=== PATIENT | female | born 1950 | race Caucasian/White ===

== ENCOUNTER 2016-10-13 15:04 | Emergency (ER) | payer MEDICARE, OTHER ==
[~2016-10-13] VITALS: Ht 157.5 cm; Wt 73.6 kg
[2016-10-13] MEDS ORDERED: PANT40TA25 PO (15:33)
[2016-10-13] MEDS ORDERED: ATOR40TA28 PO (15:33)
[2016-10-13] MEDS ORDERED: CARB200T6 PO (15:33)
[2016-10-13] MEDS ORDERED: RIVA15T PO (15:33)
[2016-10-13] MEDS ORDERED: METO25 PO (15:33)
[2016-10-13] MEDS ORDERED: TOPI100 PO (15:33)
[2016-10-13] MEDS ORDERED: AMLO-512 PO (15:33)
[2016-10-13] MEDS ORDERED: SOLI5 PO (15:33)
[2016-10-13] MEDS ORDERED: ASPI81 PO (15:33)
[2016-10-13] MEDS ORDERED: PERTUSS(ACELL),DIPH,TET VAC/PF 0.5 ML VIAL IM ONE (17:30)
[2016-10-13] MEDS ORDERED: AMOX TR/POT CLAV 875 MG/125 MG TABLET PO ONE (17:30)
[2016-10-13] MEDS ORDERED: BACITRACIN 0.9 GM PACKET OINTMENT TP ONE (17:30)
[2016-10-13] MEDS ORDERED: ACETAMINOPHEN/CODEINE 300-30 MG TABLET PO ONE (17:45)
[2016-10-13 18:36] VITALS: BP 125/89
== END 2016-10-13 18:38 | disposition home or self-care (01) ==
LOC: EMS 15:05
DX: S41.152A Open bite of left upper arm, initial encounter (principal); I10 Essential (primary) hypertension; Z79.4 Long term (current) use of insulin; Z79.82 Long term (current) use of aspirin; Z79.01 Long term (current) use of anticoagulants; Z95.5 Presence of coronary angioplasty implant and graft; W54.0XXA Bitten by dog, initial encounter; Y93.89 Activity, other specified; Y92.9 Unspecified place or not applicable; Y99.9 Unspecified external cause status
CPT/HCPCS: 90471; 90715; 99284

== ENCOUNTER → 2017-06-09 | Outpatient (CLI) | payer MEDICARE, OTHER ==
[~2017-06-09] VITALS: Ht 157.5 cm; Wt 72.0 kg
[~2017-06-09] MED LIST: AMLO-512 PO; ASPI81 PO; ATOR40TA28 PO; CARB200T6 PO; METO25 PO; PANT40TA25 PO; RIVA15T PO; SOLI5 PO; TOPI100T37 PO
[2017-06-09 10:32] VITALS: BP 134/76
== END | disposition home or self-care (01) ==
LOC: SRCNTR 10:21
PROVIDERS: ATTEND Internal Medicine Clinical Cardiac Electrophysiology
DX: Z45.018 Encounter for adjustment and management of other part of cardiac pacemaker (principal)
CPT/HCPCS: 93288; G0463

== ENCOUNTER → 2017-06-30 | Outpatient (CLI) | payer MEDICARE, OTHER ==
[~2017-06-30] VITALS: Ht 157.5 cm; Wt 72.0 kg
[2017-06-30 11:02] VITALS: BP 113/67
== END | disposition home or self-care (01) ==
LOC: SRCNTR 10:41
PROVIDERS: ATTEND Internal Medicine Clinical Cardiac Electrophysiology
DX: Z45.018 Encounter for adjustment and management of other part of cardiac pacemaker (principal)
CPT/HCPCS: 93288; G0463

== ENCOUNTER → 2017-09-01 | Outpatient (CLI) | payer MEDICARE, OTHER ==
[~2017-09-01] VITALS: Ht 157.5 cm; Wt 71.5 kg
[2017-09-01 10:16] VITALS: BP 119/72
== END | disposition home or self-care (01) ==
LOC: SRCNTR 10:11
PROVIDERS: ATTEND Internal Medicine Clinical Cardiac Electrophysiology
DX: Z45.018 Encounter for adjustment and management of other part of cardiac pacemaker (principal); I10 Essential (primary) hypertension; Z79.82 Long term (current) use of aspirin
CPT/HCPCS: 93288; G0463

== ENCOUNTER 2021-07-18 15:45 | Emergency (ER) | payer OTHER ==
[~2021-07-18] VITALS: Ht 157.5 cm; Wt 63.6 kg
[~2021-07-18 15:45] MED LIST changes: +ACET-2247 PO; +ACID1TAB8 PO; -AMLO-512 PO; +ASPI-1450 PO; -ASPI81 PO; +CIPR250T6 PO; -METO25 PO; +METR500 PO; +PANT-31 PO; -PANT40TA25 PO; -RIVA15T PO; +RIVA15TA PO
[2021-07-18 16:33] LABS: BASOPHILS % (AUTO) 0.4 % (0.0-2.0); EOSINOPHILS % (AUTO) 0.4 % (1.0-6.0); HEMATOCRIT 35.7 % (36-46); HEMOGLOBIN 11.9 g/dL (12.0-16.0); LYMPHOCYTES # (AUTO) 1.1 K/uL (1.0-4.8); LYMPHOCYTES % (AUTO) 18.6 % (22.0-44.0); MEAN CORPUSCULAR HGB CONC 33.5 G/dL (31.0-37.0); MEAN CORPUSCULAR VOLUME 90 fL (80-100); MONOCYTES # (AUTO) 0.4 K/uL (0.1-1.0); MONOCYTES % (AUTO) 6.6 % (2.0-9.0); NEUTROPHILS # (AUTO) 4.5 K/uL (1.8-7.7); PLATELET COUNT (AUTO) 319 K/uL (150-450); RED BLOOD CELL COUNT(AUTO) 3.97 MIL/uL (4.00-5.20); RED CELL DISTRIBUTION WIDTH 13.7 % (11.5-14.5)
[2021-07-18 16:45] LABS: INR 1.1 (0.9-1.1); PROTHROMBIN TIME 11.4 SEC (9.4-11.6)
[2021-07-18 16:49] LABS: ALANINE AMINOTRANSFERASE 14 U/L (12-78); ALKALINE PHOSPHATASE 120 U/L (46-116); ANION GAP 10 mmol/L (8-16); ASPARTATE AMINOTRANSFERASE 22 U/L (15-37); BILIRUBIN,TOTAL 0.2 mg/dL (0.1-1.0); CALCIUM, TOTAL 8.5 mg/dL (8.8-10.5); CARBON DIOXIDE 27 mmol/L (22-29); CHLORIDE 106 mmol/L (98-107); CREATININE 0.79 mg/dL (0.60-1.30); GLUCOSE,RANDOM 120 mg/dL (70-110); SODIUM SERUM 143 mmol/L (136-145); TOTAL PROTEIN, SERUM 7.8 g/dL (6.4-8.2); UREA NITROGEN, BLOOD 9 mg/dL (7-18)
[2021-07-18 16:56] LABS: GLOMERULAR FILTR. RATE CALC > 60 mL/min (>60); POTASSIUM 2.8 mmol/L (3.5-5.1)
[2021-07-18] MEDS ORDERED: POTASSIUM CHLORIDE 20 MEQ ER TABLET PO ONE (18:15)
[2021-07-18 19:06] LABS: APPEARANCE,URINE TURBID (CLEAR); BILIRUBIN,URINE NEGATIVE (NEGATIVE); GLUCOSE, URINE (UA) NEGATIVE (NEGATIVE); KETONES,URINE 15 mg/dL (NEGATIVE); LEUKOCYTE ESTERASE ,URINE LARGE (NEGATIVE); NITRATE,URINE POSITIVE (NEGATIVE); OCCULT BLOOD,URINE LARGE (NEGATIVE); PH,URINE 6.5 (5.0-8.0); PROTEIN,URINE SEE CONFIRM (NEGATIVE)
[2021-07-18 19:21] LABS: SULFOSALICYLIC ACID,URINE 4+ (Negative)
[2021-07-18 19:44] LABS: RBC,URINE Full Field /HPF (0-2); WBC,URINE Full Field /HPF (0-5)
[2021-07-18 19:46] LABS: BACTERIA,URINE Few /HPF (None Seen); SQUAMOUS EPITHELIAL CELL,UR Rare /LPF (None Seen)
[2021-07-18] MEDS ORDERED: CEPHALEXIN MONOHYDRATE 500 MG CAPSULE PO ONE (21:45)
[2021-07-18] MEDS ORDERED: CEPH500C3 PO (21:53)
[2021-07-18 22:29] VITALS: BP 123/71
== END 2021-07-18 22:33 | disposition home or self-care (01) ==
LOC: EMS 15:46
DX: N39.0 Urinary tract infection, site not specified (principal); I10 Essential (primary) hypertension; Z79.899 Other long term (current) drug therapy
CPT/HCPCS: 76817; 80053; 81001; 81002; 85025; 85610; 85730; 87086; 99285

== ENCOUNTER 2021-08-17 15:07 | Inpatient (IN) | payer OTHER ==
[~2021-08-17] VITALS: Ht 157.5 cm; Wt 53.0 kg
[~2021-08-17 15:07] MED LIST changes: +CEPH500C3 PO
[2021-08-17] MEDS ORDERED: LORazepam 2 MG/ML VIAL IVP ONE (16:00)
[2021-08-17] MEDS ORDERED: SODIUM CHLORIDE 0.9% 1,000 ML IV ONE (16:00)
[2021-08-17] MEDS ORDERED: LOPERAMIDE HCL 2 MG CAPSULE PO ONE (16:00)
[2021-08-17 16:48] LABS: BASOPHILS % (AUTO) 0.5 % (0.0-2.0); EOSINOPHILS % (AUTO) 0.2 % (1.0-6.0); LYMPHOCYTES # (AUTO) 1.4 K/uL (1.0-4.8); LYMPHOCYTES % (AUTO) 27.5 % (22.0-44.0); MEAN CORPUSCULAR HEMOGLOBIN 29.4 pg (26.0-34.0); MEAN CORPUSCULAR HGB CONC 33.3 G/dL (31.0-37.0); MEAN CORPUSCULAR VOLUME 88 fL (80-100); MONOCYTES # (AUTO) 0.4 K/uL (0.1-1.0); NEUTROPHILS # (AUTO) 3.3 K/uL (1.8-7.7); NEUTROPHILS % (AUTO) 64.8 % (40.0-70.0); PLATELET COUNT (AUTO) 291 K/uL (150-450); RED BLOOD CELL COUNT(AUTO) 4.08 MIL/uL (4.00-5.20); RED CELL DISTRIBUTION WIDTH 14.6 % (11.5-14.5)
[2021-08-17 18:09] LABS: ALANINE AMINOTRANSFERASE 18 U/L (12-78); ALBUMIN 1.9 g/dL (3.4-5.0); ALKALINE PHOSPHATASE 156 U/L (46-116); ANION GAP 11 mmol/L (8-16); ASPARTATE AMINOTRANSFERASE 31 U/L (15-37); BILIRUBIN,TOTAL 0.5 mg/dL (0.1-1.0); CALCIUM, TOTAL 6.5 mg/dL (8.8-10.5); CARBON DIOXIDE 29 mmol/L (22-29); CHLORIDE 105 mmol/L (98-107); CREATININE 0.78 mg/dL (0.60-1.30); GLOMERULAR FILTR. RATE CALC > 60 mL/min (>60); GLUCOSE,RANDOM 95 mg/dL (70-110); POTASSIUM 2.3 mmol/L (3.5-5.1); SODIUM SERUM 145 mmol/L (136-145); TOTAL PROTEIN, SERUM 6.2 g/dL (6.4-8.2); UREA NITROGEN, BLOOD 10 mg/dL (7-18)
[2021-08-17] MEDS ORDERED: ACETAMINOPHEN 325 MG TABLET PO PRN ×3 (18:30→22:00)
[2021-08-17] MEDS ORDERED: ONDANSETRON HCL 4 MG/2 ML VIAL IVP PRN ×2 (18:30→22:00)
[2021-08-17] MEDS ORDERED: POTASSIUM CHL 10 MEQ/WATER 50 ML IV PRN (18:30)
[2021-08-17] MEDS ORDERED: POTASSIUM CHLORIDE 20 MEQ ER TABLET PO PRN ×2 (18:30)
[2021-08-17] MEDS ORDERED: BISACODYL 10 MG RECTAL RECTAL SUPPOSITORY PR PRN (22:00)
[2021-08-17] MEDS ORDERED: ALBUTEROL SULFATE 2.5 MG/0.5 ML NEB SOLUTION NEB PRN (22:00)
[2021-08-17] MEDS ORDERED: IPRATROPIUM BROMIDE 0.5 MG/2.5 ML NEB SOLUTION NEB PRN (22:00)
[2021-08-17] MEDS ORDERED: MAGNESIUM HYDROXIDE SUSPENSION 30 ML UDCUP PO PRN (22:00)
[2021-08-17] MEDS ORDERED: MORPHINE SULFATE 2 MG/ML SYRINGE IVP PRN (22:00)
[2021-08-17 22:10] VITALS: BP 123/67
[2021-08-17] MEDS ORDERED: MAGNESIUM SULFATE 4 GM/WATER 100 ML IV PRN (22:15)
[2021-08-17] MEDS ORDERED: MAGNESIUM OXIDE 400 MG TABLET PO PRN (22:15)
[2021-08-17] MEDS ORDERED: MAGNESIUM SULFATE 2 GM/WATER 50 ML IV PRN (22:15)
[2021-08-17 22:44] LABS: BASOPHILS % (AUTO) 0.4 % (0.0-2.0); EOSINOPHILS % (AUTO) 0.2 % (1.0-6.0); HEMATOCRIT 34.1 % (36-46); HEMOGLOBIN 11.6 g/dL (12.0-16.0); LYMPHOCYTES # (AUTO) 1.4 K/uL (1.0-4.8); LYMPHOCYTES % (AUTO) 26.4 % (22.0-44.0); MEAN CORPUSCULAR HEMOGLOBIN 29.7 pg (26.0-34.0); MEAN CORPUSCULAR HGB CONC 33.9 G/dL (31.0-37.0); MEAN CORPUSCULAR VOLUME 88 fL (80-100); MONOCYTES # (AUTO) 0.4 K/uL (0.1-1.0); MONOCYTES % (AUTO) 7.5 % (2.0-9.0); NEUTROPHILS # (AUTO) 3.4 K/uL (1.8-7.7); NEUTROPHILS % (AUTO) 65.5 % (40.0-70.0); PLATELET COUNT (AUTO) 293 K/uL (150-450); RED BLOOD CELL COUNT(AUTO) 3.89 MIL/uL (4.00-5.20); RED CELL DISTRIBUTION WIDTH 14.5 % (11.5-14.5)
[2021-08-17 22:59] LABS: ALANINE AMINOTRANSFERASE 17 U/L (12-78); ALBUMIN 1.9 g/dL (3.4-5.0); ALKALINE PHOSPHATASE 155 U/L (46-116); ANION GAP 9 mmol/L (8-16); ASPARTATE AMINOTRANSFERASE 29 U/L (15-37); BILIRUBIN,TOTAL 0.5 mg/dL (0.1-1.0); CALCIUM, TOTAL 6.5 mg/dL (8.8-10.5); CARBON DIOXIDE 28 mmol/L (22-29); CHLORIDE 105 mmol/L (98-107); CREATININE 0.77 mg/dL (0.60-1.30); GLOMERULAR FILTR. RATE CALC > 60 mL/min (>60); GLUCOSE,RANDOM 97 mg/dL (70-110); SODIUM SERUM 142 mmol/L (136-145); TOTAL PROTEIN, SERUM 6.5 g/dL (6.4-8.2); UREA NITROGEN, BLOOD 8 mg/dL (7-18)
[2021-08-17 23:01] LABS: POTASSIUM 2.1 mmol/L (3.5-5.1)
[2021-08-17] MEDS: HEPARIN SODIUM,PORCINE 5,000 UNITS/ML VIAL SQ SCH (23:21)
[2021-08-17] MEDS: POTASSIUM CHL 10 MEQ/WATER 50 ML IV PRN (23:23)
[2021-08-18] MEDS: POTASSIUM CHL 10 MEQ/WATER 50 ML IV PRN ×8 (00:32→15:59)
[2021-08-18] MEDS: ZOLPIDEM TARTRATE 5 MG TABLET PO PRN ×2 (01:28→23:11)
[2021-08-18 07:40] VITALS: BP 103/59
[2021-08-18] MEDS: HEPARIN SODIUM,PORCINE 5,000 UNITS/ML VIAL SQ SCH ×3 (08:22→22:26)
[2021-08-18] MEDS: ASPIRIN 81 MG CHEWABLE TABLET PO SCH (08:23)
[2021-08-18] MEDS: LACTOBACILLUS ACIDOPHILUS/BULGARICUS TABLET PO SCH ×2 (08:23→22:26)
[2021-08-18] MEDS: MetroNIDAZOLE 500 MG TABLET PO SCH ×3 (08:23→22:26)
[2021-08-18] MEDS: PANTOPRAZOLE SODIUM 40 MG DR TABLET PO SCH ×2 (08:24→22:25)
[2021-08-18] MEDS: ATORVASTATIN CALCIUM 40 MG TABLET PO SCH (08:24)
[2021-08-18] MEDS: TOPIRAMATE 100 MG TABLET PO SCH ×2 (08:24→22:26)
[2021-08-18] MEDS: SOLIFENACIN SUCCINATE 5 MG TABLET PO SCH (08:25)
[2021-08-18] MEDS: CarBAMazepine 200 MG TABLET PO SCH (08:26)
[2021-08-18] MEDS ORDERED: PANTOPRAZOLE SODIUM 40 MG/VIAL IVP SCH (09:00)
[2021-08-18 10:50] VITALS: BP 109/67
[2021-08-18] MEDS ORDERED: SODIUM CHLORIDE 0.9% 500 ML IV ONE ×2 (11:11→15:53)
[2021-08-18] MEDS ORDERED: SODIUM CHLORIDE 0.9% 250 ML IV ONE (11:48)
[2021-08-18] MEDS: POTASSIUM CHLORIDE 20 MEQ ER TABLET PO PRN ×2 (13:47→23:10)
[2021-08-18] MEDS: HYDROCODONE/ACETAMINOPHEN 5-325 MG TABLET PO PRN (15:40)
[2021-08-18] MEDS: RIVAROXABAN 15 MG TABLET PO SCH (18:03)
[2021-08-18 20:44] VITALS: BP 99/58
[2021-08-18 22:46] VITALS: BP 103/58
[2021-08-19 01:17] VITALS: BP 109/71
[2021-08-19 05:11] VITALS: BP 116/55
[2021-08-19 08:13] VITALS: BP 117/74
[2021-08-19] MEDS: LACTOBACILLUS ACIDOPHILUS/BULGARICUS TABLET PO SCH ×2 (08:27→20:54)
[2021-08-19] MEDS: MetroNIDAZOLE 500 MG TABLET PO SCH ×3 (08:27→20:55)
[2021-08-19] MEDS: TOPIRAMATE 100 MG TABLET PO SCH ×2 (08:27→20:55)
[2021-08-19] MEDS: HYDROCODONE/ACETAMINOPHEN 5-325 MG TABLET PO PRN (08:27)
[2021-08-19] MEDS: SOLIFENACIN SUCCINATE 5 MG TABLET PO SCH (08:27)
[2021-08-19] MEDS: ASPIRIN 81 MG CHEWABLE TABLET PO SCH (08:28)
[2021-08-19] MEDS: CarBAMazepine 200 MG TABLET PO SCH (08:28)
[2021-08-19] MEDS: PANTOPRAZOLE SODIUM 40 MG DR TABLET PO SCH ×2 (08:28→20:54)
[2021-08-19] MEDS: ATORVASTATIN CALCIUM 40 MG TABLET PO SCH (08:28)
[2021-08-19] MEDS: HEPARIN SODIUM,PORCINE 5,000 UNITS/ML VIAL SQ SCH ×3 (08:28→20:55)
[2021-08-19 11:14] LABS: ANION GAP 6 mmol/L (8-16); CALCIUM, TOTAL 6.7 mg/dL (8.8-10.5); CARBON DIOXIDE 24 mmol/L (22-29); CHLORIDE 109 mmol/L (98-107); CREATININE 0.73 mg/dL (0.60-1.30); GLUCOSE,RANDOM 124 mg/dL (70-110); POTASSIUM 3.3 mmol/L (3.5-5.1); SODIUM SERUM 139 mmol/L (136-145); UREA NITROGEN, BLOOD 7 mg/dL (7-18)
[2021-08-19 11:15] LABS: GLOMERULAR FILTR. RATE CALC > 60 mL/min (>60)
[2021-08-19] MEDS: POTASSIUM CHLORIDE 20 MEQ ER TABLET PO PRN (11:34)
[2021-08-19 14:02] LABS: APPEARANCE,URINE CLOUDY (CLEAR); BILIRUBIN,URINE NEGATIVE (NEGATIVE); GLUCOSE, URINE (UA) NEGATIVE (NEGATIVE); KETONES,URINE NEGATIVE (NEGATIVE); LEUKOCYTE ESTERASE ,URINE LARGE (NEGATIVE); NITRATE,URINE NEGATIVE (NEGATIVE); OCCULT BLOOD,URINE MODERATE (NEGATIVE); PROTEIN,URINE NEGATIVE (NEGATIVE)
[2021-08-19 14:24] LABS: BACTERIA,URINE Many /HPF (None Seen); RBC,URINE 0-2 /HPF (0-2); SQUAMOUS EPITHELIAL CELL,UR Few /LPF (None Seen); WBC,URINE 26-50 /HPF (0-5)
[2021-08-19 16:00] VITALS: BP 111/71
[2021-08-19] MEDS: CefTRIAXone SODIUM 250 MG in DEXTROSE 5%-WATER 50 ML IV SCH (16:32)
[2021-08-19] MEDS: CEPHALEXIN MONOHYDRATE 500 MG CAPSULE PO SCH ×2 (16:32→20:55)
[2021-08-19] MEDS: RIVAROXABAN 15 MG TABLET PO SCH (18:19)
[2021-08-19 19:29] VITALS: BP 107/63
[2021-08-19] MEDS: ZOLPIDEM TARTRATE 5 MG TABLET PO PRN (20:55)
[2021-08-20 04:15] VITALS: BP 105/68
[2021-08-20 08:41] VITALS: BP 119/76
[2021-08-20] MEDS: CEPHALEXIN MONOHYDRATE 500 MG CAPSULE PO SCH (10:06)
[2021-08-20] MEDS: TOPIRAMATE 100 MG TABLET PO SCH (10:07)
[2021-08-20] MEDS: LACTOBACILLUS ACIDOPHILUS/BULGARICUS TABLET PO SCH (10:07)
[2021-08-20] MEDS: ATORVASTATIN CALCIUM 40 MG TABLET PO SCH (10:07)
[2021-08-20] MEDS: PANTOPRAZOLE SODIUM 40 MG DR TABLET PO SCH (10:07)
[2021-08-20] MEDS: ASPIRIN 81 MG CHEWABLE TABLET PO SCH (10:07)
[2021-08-20] MEDS: SOLIFENACIN SUCCINATE 5 MG TABLET PO SCH (10:07)
[2021-08-20] MEDS: CarBAMazepine 200 MG TABLET PO SCH (10:08)
[2021-08-20] MEDS: MetroNIDAZOLE 500 MG TABLET PO SCH (10:08)
[2021-08-20] MEDS: HEPARIN SODIUM,PORCINE 5,000 UNITS/ML VIAL SQ SCH (10:08)
[2021-08-20 10:32] LABS: BASOPHILS % (AUTO) 0.3 % (0.0-2.0); EOSINOPHILS % (AUTO) 0.2 % (1.0-6.0); HEMATOCRIT 36.6 % (36-46); HEMOGLOBIN 11.9 g/dL (12.0-16.0); LYMPHOCYTES # (AUTO) 1.5 K/uL (1.0-4.8); LYMPHOCYTES % (AUTO) 30.2 % (22.0-44.0); MEAN CORPUSCULAR HEMOGLOBIN 29.2 pg (26.0-34.0); MEAN CORPUSCULAR HGB CONC 32.6 G/dL (31.0-37.0); MEAN CORPUSCULAR VOLUME 90 fL (80-100); MONOCYTES # (AUTO) 0.4 K/uL (0.1-1.0); MONOCYTES % (AUTO) 7.3 % (2.0-9.0); PLATELET COUNT (AUTO) 367 K/uL (150-450); RED BLOOD CELL COUNT(AUTO) 4.08 MIL/uL (4.00-5.20); RED CELL DISTRIBUTION WIDTH 15.6 % (11.5-14.5)
[2021-08-20 10:59] LABS: ANION GAP 13 mmol/L (8-16); CARBON DIOXIDE 23 mmol/L (22-29); CHLORIDE 108 mmol/L (98-107); CREATININE 0.82 mg/dL (0.60-1.30); POTASSIUM 3.9 mmol/L (3.5-5.1); SODIUM SERUM 144 mmol/L (136-145); UREA NITROGEN, BLOOD 9 mg/dL (7-18)
[2021-08-20 11:00] LABS: ALANINE AMINOTRANSFERASE 17 U/L (12-78); ALBUMIN 1.8 g/dL (3.4-5.0); ALKALINE PHOSPHATASE 163 U/L (46-116); ASPARTATE AMINOTRANSFERASE 27 U/L (15-37); BILIRUBIN,TOTAL 0.3 mg/dL (0.1-1.0); CALCIUM, TOTAL 7.4 mg/dL (8.8-10.5); THYROID STIMULATING HORMONE 1.09 uIU/mL (0.36-3.74); TOTAL PROTEIN, SERUM 6.6 g/dL (6.4-8.2)
[2021-08-20 11:01] LABS: GLOMERULAR FILTR. RATE CALC > 60 mL/min (>60)
[2021-08-20 11:05] LABS: GLUCOSE,RANDOM 129 mg/dL (70-110)
[2021-08-20 12:51] VITALS: BP 106/73
[2021-08-20] MEDS: CefTRIAXone SODIUM 250 MG in DEXTROSE 5%-WATER 50 ML IV SCH (14:58)
[2021-08-20] MEDS ORDERED: METR500 PO (16:39)
[2021-08-20] MEDS ORDERED: CEPH500C3 PO (16:39)
== END 2021-08-20 17:01 | disposition home or self-care (01) | DRG 391 ==
LOC: EMS 15:12 → 5S 20:36 → 6N 08-18 10:20
PROVIDERS: ADMIT Hospitalist; ATTEND Hospitalist
DX: R19.7 Diarrhea, unspecified (principal); E43 Unspecified severe protein-calorie malnutrition; E87.6 Hypokalemia; G40.909 Epilepsy, unspecified, not intractable, without status epilepticus; I10 Essential (primary) hypertension; E78.5 Hyperlipidemia, unspecified; E88.09 Other disorders of plasma-protein metabolism, not elsewhere classified; Z79.899 Other long term (current) drug therapy; T36.95XA Adverse effect of unspecified systemic antibiotic, initial encounter; Y92.89 Other specified places as the place of occurrence of the external cause
CPT/HCPCS: 80048; 80053; 81001; 83735; 84132; 84443; 85025; 87086; 93005; 99285; J0696; J1644; J2060; J3475; J3480; J7030; J7040; J7050; J7060

== ENCOUNTER 2021-08-30 13:06 | Inpatient (IN) | payer OTHER ==
[~2021-08-30] VITALS: Ht 160 cm; Wt 56.1 kg
[~2021-08-30 13:06] MED LIST changes: -ACID1TAB8 PO; -CIPR250T6 PO
[2021-08-30 14:02] LABS: BASOPHILS % (AUTO) 0.2 % (0.0-2.0); EOSINOPHILS % (AUTO) 0.1 % (1.0-6.0); HEMATOCRIT 31.1 % (36-46); HEMOGLOBIN 10.7 g/dL (12.0-16.0); LYMPHOCYTES # (AUTO) 1.5 K/uL (1.0-4.8); LYMPHOCYTES % (AUTO) 26.2 % (22.0-44.0); MEAN CORPUSCULAR HEMOGLOBIN 30.1 pg (26.0-34.0); MEAN CORPUSCULAR HGB CONC 34.3 G/dL (31.0-37.0); MEAN CORPUSCULAR VOLUME 88 fL (80-100); MONOCYTES # (AUTO) 0.4 K/uL (0.1-1.0); MONOCYTES % (AUTO) 6.6 % (2.0-9.0); NEUTROPHILS # (AUTO) 3.9 K/uL (1.8-7.7); NEUTROPHILS % (AUTO) 66.9 % (40.0-70.0); PLATELET COUNT (AUTO) 271 K/uL (150-450); RED BLOOD CELL COUNT(AUTO) 3.55 MIL/uL (4.00-5.20); RED CELL DISTRIBUTION WIDTH 17.4 % (11.5-14.5)
[2021-08-30 14:18] LABS: LACTIC ACID 1.6 mmol/L (0.4-2.0)
[2021-08-30] MEDS ORDERED: ACETAMINOPHEN 325 MG TABLET PO ONE (14:30)
[2021-08-30] MEDS ORDERED: SODIUM CHLORIDE 0.9% 1,000 ML IV ONE (14:30)
[2021-08-30 14:31] LABS: ALANINE AMINOTRANSFERASE 14 U/L (12-78); ALBUMIN 1.5 g/dL (3.4-5.0); ALKALINE PHOSPHATASE 171 U/L (46-116); ANION GAP 12 mmol/L (8-16); ASPARTATE AMINOTRANSFERASE 28 U/L (15-37); BILIRUBIN,TOTAL 0.8 mg/dL (0.1-1.0); CALCIUM, TOTAL 7.1 mg/dL (8.8-10.5); CARBON DIOXIDE 24 mmol/L (22-29); CHLORIDE 101 mmol/L (98-107); CREATININE 0.58 mg/dL (0.60-1.30); GLUCOSE,RANDOM 93 mg/dL (70-110); LIPASE 46 U/L (73-393); SODIUM SERUM 137 mmol/L (136-145); TOTAL PROTEIN, SERUM 5.9 g/dL (6.4-8.2); UREA NITROGEN, BLOOD 15 mg/dL (7-18)
[2021-08-30 14:36] LABS: GLOMERULAR FILTR. RATE CALC > 60 mL/min (>60); POTASSIUM 2.8 mmol/L (3.5-5.1)
[2021-08-30] MEDS ORDERED: POTASSIUM CHLORIDE 20 MEQ ER TABLET PO ONE (14:45)
[2021-08-30] MEDS ORDERED: POTASSIUM CHL 20 MEQ/0.9% NS 1,000 ML IV ONE (15:45)
[2021-08-30] MEDS ORDERED: CefTRIAXone 1 GM/DEXTROSE 50 ML IV ONE (17:15)
[2021-08-30 17:34] LABS: COVID AG,FIA SOURCE NASOPHARYNGEAL
[2021-08-30] MEDS ORDERED: ONDANSETRON HCL 4 MG/2 ML VIAL IVP PRN ×2 (17:45→20:30)
[2021-08-30] MEDS ORDERED: ACETAMINOPHEN 325 MG TABLET PO PRN ×2 (17:45→20:30)
[2021-08-30] MEDS ORDERED: MORPHINE SULFATE 2 MG/ML SYRINGE IVP PRN (20:30)
[2021-08-30] MEDS ORDERED: ZOLPIDEM TARTRATE 5 MG TABLET PO PRN (20:30)
[2021-08-30] MEDS ORDERED: HYDROCODONE/ACETAMINOPHEN 5-325 MG TABLET PO PRN (20:30)
[2021-08-30] MEDS ORDERED: MAGNESIUM HYDROXIDE SUSPENSION 30 ML UDCUP PO PRN (20:30)
[2021-08-30] MEDS ORDERED: BISACODYL 10 MG RECTAL RECTAL SUPPOSITORY PR PRN (20:30)
[2021-08-30] MEDS ORDERED: ALBUTEROL SULFATE 2.5 MG/0.5 ML NEB SOLUTION NEB PRN (20:30)
[2021-08-30] MEDS ORDERED: IPRATROPIUM BROMIDE 0.5 MG/2.5 ML NEB SOLUTION NEB PRN (20:30)
[2021-08-30 20:58] VITALS: BP 97/72
[2021-08-30] MEDS: DOCUSATE SODIUM 100 MG CAPSULE PO SCH (21:00)
[2021-08-30] MEDS: POTASSIUM CHL 40 MEQ/D5-0.45NS 1,000 ML IV SCH (23:19)
[2021-08-30] MEDS: HEPARIN SODIUM,PORCINE 5,000 UNITS/ML VIAL SQ SCH (23:28)
[2021-08-31] VITALS (7 sets, daily range): BP systolic 89–109; BP diastolic 59–87
[2021-08-31 08:44] LABS: BASOPHILS % (AUTO) 0.1 % (0.0-2.0); EOSINOPHILS % (AUTO) 0.3 % (1.0-6.0); HEMATOCRIT 29.2 % (36-46); HEMOGLOBIN 9.9 g/dL (12.0-16.0); LYMPHOCYTES # (AUTO) 1.4 K/uL (1.0-4.8); LYMPHOCYTES % (AUTO) 30.3 % (22.0-44.0); MEAN CORPUSCULAR HEMOGLOBIN 30.1 pg (26.0-34.0); MEAN CORPUSCULAR VOLUME 89 fL (80-100); MONOCYTES # (AUTO) 0.3 K/uL (0.1-1.0); MONOCYTES % (AUTO) 6.6 % (2.0-9.0); NEUTROPHILS # (AUTO) 2.9 K/uL (1.8-7.7); NEUTROPHILS % (AUTO) 62.7 % (40.0-70.0); PLATELET COUNT (AUTO) 255 K/uL (150-450); RED BLOOD CELL COUNT(AUTO) 3.29 MIL/uL (4.00-5.20); RED CELL DISTRIBUTION WIDTH 17.6 % (11.5-14.5)
[2021-08-31 08:57] LABS: ALANINE AMINOTRANSFERASE 16 U/L (12-78); ALBUMIN 1.3 g/dL (3.4-5.0); ALKALINE PHOSPHATASE 176 U/L (46-116); ANION GAP 8 mmol/L (8-16); ASPARTATE AMINOTRANSFERASE 31 U/L (15-37); BILIRUBIN,TOTAL 0.5 mg/dL (0.1-1.0); CALCIUM, TOTAL 6.8 mg/dL (8.8-10.5); CARBON DIOXIDE 21 mmol/L (22-29); CHLORIDE 108 mmol/L (98-107); CREATININE 0.47 mg/dL (0.60-1.30); GLOMERULAR FILTR. RATE CALC > 60 mL/min (>60); GLUCOSE,RANDOM 76 mg/dL (70-110); POTASSIUM 3.3 mmol/L (3.5-5.1); SODIUM SERUM 137 mmol/L (136-145); TOTAL PROTEIN, SERUM 5.5 g/dL (6.4-8.2); UREA NITROGEN, BLOOD 13 mg/dL (7-18)
[2021-08-31] MEDS: DOCUSATE SODIUM 100 MG CAPSULE PO SCH ×2 (09:00→20:16)
[2021-08-31] MEDS: PANTOPRAZOLE SODIUM 40 MG/VIAL IVP SCH (09:01)
[2021-08-31] MEDS: HEPARIN SODIUM,PORCINE 5,000 UNITS/ML VIAL SQ SCH (09:01)
[2021-08-31] MEDS ORDERED: PEG 3350/NA SULF,BICARB,CL/KCL 4000 ML SOLUTION PO ONE (12:00)
[2021-08-31] MEDS: POTASSIUM CHL 40 MEQ/D5-0.45NS 1,000 ML IV SCH (13:38)
[2021-08-31] MEDS: CarBAMazepine 200 MG TABLET PO SCH (15:30)
[2021-09-01] MEDS: POTASSIUM CHL 40 MEQ/D5-0.45NS 1,000 ML IV SCH ×2 (03:27→16:26)
[2021-09-01 03:35] VITALS: BP 113/55
[2021-09-01] MEDS: CarBAMazepine 200 MG TABLET PO SCH (08:54)
[2021-09-01] MEDS: PANTOPRAZOLE SODIUM 40 MG/VIAL IVP SCH (08:54)
[2021-09-01] MEDS: DOCUSATE SODIUM 100 MG CAPSULE PO SCH ×2 (08:58→21:00)
[2021-09-01 09:39] VITALS: BP 98/63
[2021-09-01] MEDS ORDERED: SODIUM CHLORIDE 0.9% 1,000 ML ONE (12:33)
[2021-09-01 18:46] VITALS: BP 100/54
[2021-09-01 21:39] VITALS: BP 101/69
[2021-09-02] MEDS: POTASSIUM CHL 40 MEQ/D5-0.45NS 1,000 ML IV SCH (00:47)
[2021-09-02 05:04] VITALS: BP 95/65
[2021-09-02] MEDS ORDERED: 0.9% SODIUM CHLORIDE 10 ML VIAL IVP ONE (06:21)
[2021-09-02] MEDS ORDERED: PROPOFOL 1% 20 ML VIAL IVP ONE (06:21)
[2021-09-02] MEDS ORDERED: LIDOCAINE/PF 2% 5 ML VIAL IM ONE (06:21)
[2021-09-02] MEDS ORDERED: PHENYLEPHRINE HCL 10 MG/ML VIAL IVP ONE (06:21)
[2021-09-02] MEDS ORDERED: SODIUM CHLORIDE 0.9% 1,000 ML IV ONE (06:45)
[2021-09-02] MEDS ORDERED: SODIUM CHLORIDE 0.9% 1,000 ML ONE (06:49)
[2021-09-02 07:02] LABS: BASOPHILS % (AUTO) 0.3 % (0.0-2.0); EOSINOPHILS % (AUTO) 0.3 % (1.0-6.0); HEMATOCRIT 28.4 % (36-46); HEMOGLOBIN 9.6 g/dL (12.0-16.0); LYMPHOCYTES # (AUTO) 2.2 K/uL (1.0-4.8); LYMPHOCYTES % (AUTO) 51.9 % (22.0-44.0); MEAN CORPUSCULAR HEMOGLOBIN 29.9 pg (26.0-34.0); MEAN CORPUSCULAR HGB CONC 33.7 G/dL (31.0-37.0); MEAN CORPUSCULAR VOLUME 89 fL (80-100); MONOCYTES # (AUTO) 0.2 K/uL (0.1-1.0); MONOCYTES % (AUTO) 4.7 % (2.0-9.0); NEUTROPHILS # (AUTO) 1.8 K/uL (1.8-7.7); NEUTROPHILS % (AUTO) 42.8 % (40.0-70.0); PLATELET COUNT (AUTO) 186 K/uL (150-450); RED BLOOD CELL COUNT(AUTO) 3.21 MIL/uL (4.00-5.20); RED CELL DISTRIBUTION WIDTH 18.5 % (11.5-14.5)
[2021-09-02] MEDS ORDERED: SODIUM CL IRRIG SOLN BAG 6,000 ML IRRIG ONE (07:10)
[2021-09-02 07:15] LABS: ANION GAP 11 mmol/L (8-16); CARBON DIOXIDE 24 mmol/L (22-29); CHLORIDE 109 mmol/L (98-107); CREATININE 0.57 mg/dL (0.60-1.30); GLUCOSE,RANDOM 85 mg/dL (70-110); INR 1.2 (0.9-1.1); POTASSIUM 4.3 mmol/L (3.5-5.1); PROTHROMBIN TIME 12.9 SEC (9.4-11.6); SODIUM SERUM 144 mmol/L (136-145); UREA NITROGEN, BLOOD 6 mg/dL (7-18)
[2021-09-02] MEDS ORDERED: FentaNYL CITRATE PF 100 MCG/2 ML VIAL IVP PRN (07:15)
[2021-09-02] MEDS ORDERED: MEPERIDINE-PF 25 MG/ML VIAL IVP PRN (07:15)
[2021-09-02] MEDS ORDERED: HYDROmorphone 2 MG/ML VIAL IVP PRN (07:15)
[2021-09-02 07:17] LABS: GLOMERULAR FILTR. RATE CALC > 60 mL/min (>60)
[2021-09-02 07:21] LABS: ALANINE AMINOTRANSFERASE 25 U/L (12-78); ALBUMIN 1.2 g/dL (3.4-5.0); ALKALINE PHOSPHATASE 181 U/L (46-116); ASPARTATE AMINOTRANSFERASE 63 U/L (15-37); BILIRUBIN,TOTAL 0.5 mg/dL (0.1-1.0); TOTAL PROTEIN, SERUM 5.3 g/dL (6.4-8.2)
[2021-09-02] MEDS ORDERED: OXYGEN THERAPY IH SCH (08:00)
[2021-09-02] MEDS ORDERED: ACETAMINOPHEN 325 MG TABLET PO PRN (08:15)
[2021-09-02] MEDS ORDERED: METOPROLOL TARTRATE 5 MG/5 ML VIAL ONE (08:17)
[2021-09-02] MEDS ORDERED: PANTOPRAZOLE SODIUM 40 MG DR TABLET PO SCH (09:00)
[2021-09-02] MEDS ORDERED: ASPIRIN 81 MG CHEWABLE TABLET PO SCH (09:00)
[2021-09-02] MEDS ORDERED: MetroNIDAZOLE 500 MG TABLET PO SCH (09:00)
[2021-09-02] MEDS: DOCUSATE SODIUM 100 MG CAPSULE PO SCH (09:00)
[2021-09-02] MEDS ORDERED: ATORVASTATIN CALCIUM 40 MG TABLET PO SCH (09:00)
[2021-09-02] MEDS: CarBAMazepine 200 MG TABLET PO SCH (09:25)
[2021-09-02] MEDS: CEPHALEXIN MONOHYDRATE 500 MG CAPSULE PO SCH ×3 (09:25→16:05)
[2021-09-02 10:27] VITALS: BP 116/63
[2021-09-02 14:03] VITALS: BP 112/70
[2021-09-02] MEDS ORDERED: CEPH500C2 PO (18:00)
[2021-09-02] MEDS ORDERED: METR500 PO (18:00)
[2021-09-02] MEDS ORDERED: DEXAMETHASONE SOD PHOS 4 MG/ML VIAL IVP ONE (18:59)
[2021-09-02] MEDS ORDERED: MIDAZOLAM HCL 2 MG/2 ML VIAL IVP ONE (18:59)
[2021-09-02] MEDS ORDERED: EPHEDrine SULFATE 50 MG/ML VIAL IM ONE (18:59)
[2021-09-02] MEDS ORDERED: SUCCINYLCHOLINE CHLORIDE 20 MG/ML 10 ML VIAL IVP ONE (18:59)
[2021-09-02] MEDS ORDERED: FentaNYL CITRATE PF 100 MCG/2 ML VIAL IVP ONE (18:59)
[2021-09-02] MEDS ORDERED: ONDANSETRON HCL 4 MG/2 ML VIAL IVP ONE (18:59)
[2021-09-02] MEDS ORDERED: LACTULOSE 20 GM/30 ML SOLUTION UDCUP PO SCH (21:00)
== END 2021-09-02 19:00 | disposition home or self-care (01) | DRG 698 ==
LOC: EMS 13:06 → 5N 19:53 → 6S 09-01 18:25
PROVIDERS: ADMIT Hospitalist; ATTEND Hospitalist
PROC: 0DBN8ZX Excision of Sigmoid Colon, Via Natural or Artificial Opening Endoscopic, Diagnostic (ICD-10-PCS; 2021-09-01)
PROC: 0TJB8ZZ Inspection of Bladder, Via Natural or Artificial Opening Endoscopic (ICD-10-PCS; principal; 2021-09-02 07:57)
DX: N32.1 Vesicointestinal fistula (principal); E43 Unspecified severe protein-calorie malnutrition; K57.32 Diverticulitis of large intestine without perforation or abscess without bleeding; I10 Essential (primary) hypertension; E87.6 Hypokalemia; D64.9 Anemia, unspecified; N30.80 Other cystitis without hematuria; K52.9 Noninfective gastroenteritis and colitis, unspecified; I25.10 Atherosclerotic heart disease of native coronary artery without angina pectoris; Z20.822 Contact with and (suspected) exposure to COVID-19; E86.0 Dehydration; I95.9 Hypotension, unspecified; E78.5 Hyperlipidemia, unspecified; E88.09 Other disorders of plasma-protein metabolism, not elsewhere classified; E78.00 Pure hypercholesterolemia, unspecified; G40.909 Epilepsy, unspecified, not intractable, without status epilepticus; Z79.899 Other long term (current) drug therapy; Z90.49 Acquired absence of other specified parts of digestive tract; Z95.0 Presence of cardiac pacemaker; Z68.21 Body mass index [BMI] 21.0-21.9, adult
CPT/HCPCS: 51702; 71045; 74176; 80053; 83605; 83690; 84484; 85025; 85610; 85730; 87081; 88305; 93005; 99291; C9113; J0330; J0690; J0696; J1100; J1644; J2250; J2270; J2370; J2405; J2704; J3010; J3480; J3490; J7030; 36415-L1; 36415-TC; Z7610

== ENCOUNTER 2021-09-06 19:09 | Inpatient (IN) | payer OTHER ==
[~2021-09-06] VITALS: Ht 157.5 cm; Wt 51.5 kg
[~2021-09-06 19:09] MED LIST changes: +CEPH500C2 PO; -CEPH500C3 PO
[2021-09-06 20:19] LABS: BASOPHILS % (AUTO) 1.3 % (0.0-2.0); EOSINOPHILS % (AUTO) 0.2 % (1.0-6.0); HEMATOCRIT 27.7 % (36-46); HEMOGLOBIN 9.3 g/dL (12.0-16.0); LYMPHOCYTES # (AUTO) 2.1 K/uL (1.0-4.8); LYMPHOCYTES % (AUTO) 48.2 % (22.0-44.0); MEAN CORPUSCULAR HEMOGLOBIN 29.8 pg (26.0-34.0); MEAN CORPUSCULAR HGB CONC 33.6 G/dL (31.0-37.0); MEAN CORPUSCULAR VOLUME 89 fL (80-100); MONOCYTES # (AUTO) 0.2 K/uL (0.1-1.0); MONOCYTES % (AUTO) 5.4 % (2.0-9.0); NEUTROPHILS # (AUTO) 1.9 K/uL (1.8-7.7); NEUTROPHILS % (AUTO) 44.9 % (40.0-70.0); PLATELET COUNT (AUTO) 114 K/uL (150-450); RED BLOOD CELL COUNT(AUTO) 3.12 MIL/uL (4.00-5.20); RED CELL DISTRIBUTION WIDTH 18.2 % (11.5-14.5)
[2021-09-06 20:26] LABS: ANION GAP 10 mmol/L (8-16); CALCIUM, TOTAL 7.5 mg/dL (8.8-10.5); CARBON DIOXIDE 23 mmol/L (22-29); CHLORIDE 107 mmol/L (98-107); CREATININE 0.54 mg/dL (0.60-1.30); GLUCOSE,RANDOM 99 mg/dL (70-110); POTASSIUM 4.4 mmol/L (3.5-5.1); SODIUM SERUM 140 mmol/L (136-145); UREA NITROGEN, BLOOD 7 mg/dL (7-18)
[2021-09-06 20:29] LABS: INR 1.2 (0.9-1.1); PROTHROMBIN TIME 12.4 SEC (9.4-11.6)
[2021-09-06 20:33] LABS: APPEARANCE,URINE TURBID (CLEAR); BILIRUBIN,URINE NEGATIVE (NEGATIVE); GLUCOSE, URINE (UA) NEGATIVE (NEGATIVE); KETONES,URINE TRACE mg/dL (NEGATIVE); LEUKOCYTE ESTERASE ,URINE LARGE (NEGATIVE); NITRATE,URINE NEGATIVE (NEGATIVE); OCCULT BLOOD,URINE LARGE (NEGATIVE); PROTEIN,URINE SEE CONFIRM (NEGATIVE)
[2021-09-06 20:33] LABS: ALANINE AMINOTRANSFERASE 41 U/L (12-78); ALBUMIN 1.5 g/dL (3.4-5.0); ALKALINE PHOSPHATASE 393 U/L (46-116); ASPARTATE AMINOTRANSFERASE 63 U/L (15-37); BILIRUBIN,TOTAL 0.6 mg/dL (0.1-1.0); TOTAL PROTEIN, SERUM 6.1 g/dL (6.4-8.2)
[2021-09-06 20:35] LABS: B-TYPE NATRIURETIC PEPTIDE 39 pg/mL (0-100)
[2021-09-06 20:36] LABS: GLOMERULAR FILTR. RATE CALC > 60 mL/min (>60)
[2021-09-06 20:52] LABS: BACTERIA,URINE Few /HPF (None Seen); WBC,URINE >100 /HPF (0-5)
[2021-09-06 20:53] LABS: SULFOSALICYLIC ACID,URINE 1+ (Negative)
[2021-09-06 22:49] LABS: D-DIMER 1.06 mg/L FEU (0.00-0.50)
[2021-09-06] MEDS ORDERED: IOHEXOL 350 MG/ML 100 ML VIAL ONE (23:16)
[2021-09-07] MEDS ORDERED: FUROSEMIDE 40 MG/4 ML VIAL IVP ONE (04:45)
[2021-09-07] MEDS ORDERED: ONDANSETRON HCL 4 MG/2 ML VIAL IVP PRN (05:15)
[2021-09-07 05:28] LABS: COVID AG,FIA SOURCE NASAL SWAB
[2021-09-07 06:28] VITALS: BP 118/67
[2021-09-07] MEDS ORDERED: HEPARIN SODIUM,PORCINE 5,000 UNITS/ML VIAL SQ SCH ×2 (08:00→16:00)
[2021-09-07 08:24] VITALS: BP 104/67
[2021-09-07] MEDS: MetroNIDAZOLE 500 MG TABLET PO SCH ×3 (08:27→20:40)
[2021-09-07] MEDS: ASPIRIN 81 MG CHEWABLE TABLET PO SCH (08:27)
[2021-09-07] MEDS: ATORVASTATIN CALCIUM 40 MG TABLET PO SCH (08:27)
[2021-09-07] MEDS: PANTOPRAZOLE SODIUM 40 MG DR TABLET PO SCH ×2 (08:28→20:40)
[2021-09-07] MEDS: CarBAMazepine 200 MG TABLET PO SCH (08:37)
[2021-09-07] MEDS: TOPIRAMATE 100 MG TABLET PO SCH ×2 (08:37→20:40)
[2021-09-07] MEDS ORDERED: CEPHALEXIN MONOHYDRATE 500 MG CAPSULE PO SCH (09:00)
[2021-09-07 09:55] LABS: BILIRUBIN,URINE NEGATIVE (NEGATIVE); GLUCOSE, URINE (UA) NEGATIVE (NEGATIVE); KETONES,URINE NEGATIVE (NEGATIVE); LEUKOCYTE ESTERASE ,URINE MODERATE (NEGATIVE); NITRATE,URINE NEGATIVE (NEGATIVE); OCCULT BLOOD,URINE SMALL (NEGATIVE); PROTEIN,URINE NEGATIVE (NEGATIVE); UROBILINOGEN,URINE 0.2 mg/dL (<=1.0)
[2021-09-07 10:16] LABS: APPEARANCE,URINE HAZY (CLEAR)
[2021-09-07 10:23] LABS: BACTERIA,URINE Few /HPF (None Seen)
[2021-09-07] MEDS: CefTRIAXone 1 GM/DEXTROSE 50 ML IV SCH (13:07)
[2021-09-07 13:13] VITALS: BP 100/58
[2021-09-07] MEDS ORDERED: RIVAROXABAN 15 MG TABLET PO SCH (17:30)
[2021-09-07 18:32] VITALS: BP 103/51
[2021-09-07 20:32] VITALS: BP 109/59
[2021-09-08 00:17] VITALS: BP 119/68
[2021-09-08 04:22] VITALS: BP 112/67
[2021-09-08 07:40] LABS: ANION GAP 3 mmol/L (8-16); CARBON DIOXIDE 25 mmol/L (22-29); CHLORIDE 108 mmol/L (98-107); CREATININE 0.59 mg/dL (0.60-1.30); GLOMERULAR FILTR. RATE CALC > 60 mL/min (>60); GLUCOSE,RANDOM 86 mg/dL (70-110); SODIUM SERUM 136 mmol/L (136-145); UREA NITROGEN, BLOOD 3 mg/dL (7-18)
[2021-09-08 07:57] LABS: BASOPHILS % (AUTO) 0.8 % (0.0-2.0); EOSINOPHILS % (AUTO) 0.3 % (1.0-6.0); HEMATOCRIT 24.6 % (36-46); HEMOGLOBIN 8.4 g/dL (12.0-16.0); LYMPHOCYTES # (AUTO) 2.4 K/uL (1.0-4.8); LYMPHOCYTES % (AUTO) 55.6 % (22.0-44.0); MEAN CORPUSCULAR HEMOGLOBIN 30.1 pg (26.0-34.0); MEAN CORPUSCULAR HGB CONC 34.3 G/dL (31.0-37.0); MEAN CORPUSCULAR VOLUME 88 fL (80-100); MONOCYTES # (AUTO) 0.3 K/uL (0.1-1.0); MONOCYTES % (AUTO) 5.9 % (2.0-9.0); NEUTROPHILS # (AUTO) 1.6 K/uL (1.8-7.7); NEUTROPHILS % (AUTO) 37.4 % (40.0-70.0); PLATELET COUNT (AUTO) 94 K/uL (150-450); RED CELL DISTRIBUTION WIDTH 17.8 % (11.5-14.5)
[2021-09-08] MEDS: MetroNIDAZOLE 500 MG TABLET PO SCH ×3 (08:20→20:07)
[2021-09-08] MEDS: ASPIRIN 81 MG CHEWABLE TABLET PO SCH (08:20)
[2021-09-08] MEDS: CarBAMazepine 200 MG TABLET PO SCH (08:20)
[2021-09-08] MEDS: TOPIRAMATE 100 MG TABLET PO SCH ×2 (08:21→20:07)
[2021-09-08] MEDS: ATORVASTATIN CALCIUM 40 MG TABLET PO SCH (08:21)
[2021-09-08] MEDS: PANTOPRAZOLE SODIUM 40 MG DR TABLET PO SCH ×2 (08:21→20:07)
[2021-09-08 08:35] VITALS: BP 106/74
[2021-09-08 12:00] VITALS: BP 107/68
[2021-09-08] MEDS: CefTRIAXone 1 GM/DEXTROSE 50 ML IV SCH (12:01)
[2021-09-08] MEDS ORDERED: MAGNESIUM SULFATE 4 GM/WATER 100 ML IV PRN (15:30)
[2021-09-08] MEDS ORDERED: MAGNESIUM SULFATE 2 GM/WATER 50 ML IV PRN (15:30)
[2021-09-08] MEDS ORDERED: MAGNESIUM OXIDE 400 MG TABLET PO PRN (15:30)
[2021-09-08 15:50] LABS: ALBUMIN 1.4 g/dL (3.4-5.0)
[2021-09-08] MEDS ORDERED: LEVALBUTEROL HCL 1.25 MG/0.5 ML NEB SOLUTION NEB PRN (16:30)
[2021-09-08] MEDS: ENOXAPARIN SODIUM 60 MG/0.6 ML PF SYRINGE SQ SCH (18:16)
[2021-09-08 21:47] VITALS: BP 100/56
[2021-09-09 01:16] VITALS: BP 93/53
[2021-09-09 04:35] VITALS: BP 98/50
[2021-09-09 08:00] VITALS: BP 109/69
[2021-09-09] MEDS: ATORVASTATIN CALCIUM 40 MG TABLET PO SCH (09:37)
[2021-09-09] MEDS: ASPIRIN 81 MG CHEWABLE TABLET PO SCH (09:37)
[2021-09-09] MEDS: ENOXAPARIN SODIUM 60 MG/0.6 ML PF SYRINGE SQ SCH ×2 (09:38→20:34)
[2021-09-09] MEDS: CarBAMazepine 200 MG TABLET PO SCH (09:38)
[2021-09-09] MEDS: MetroNIDAZOLE 500 MG TABLET PO SCH ×3 (09:38→20:35)
[2021-09-09] MEDS: PANTOPRAZOLE SODIUM 40 MG DR TABLET PO SCH ×2 (09:38→20:39)
[2021-09-09] MEDS: TOPIRAMATE 100 MG TABLET PO SCH ×2 (09:38→20:35)
[2021-09-09 12:00] VITALS: BP 108/63
[2021-09-09] MEDS: CefTRIAXone 1 GM/DEXTROSE 50 ML IV SCH (12:50)
[2021-09-09 14:42] LABS: BASOPHILS % (AUTO) 0.4 % (0.0-2.0); EOSINOPHILS % (AUTO) 0.4 % (1.0-6.0); HEMATOCRIT 24.1 % (36-46); LYMPHOCYTES # (AUTO) 2.7 K/uL (1.0-4.8); LYMPHOCYTES % (AUTO) 55.3 % (22.0-44.0); MEAN CORPUSCULAR HEMOGLOBIN 29.3 pg (26.0-34.0); MEAN CORPUSCULAR HGB CONC 33.2 G/dL (31.0-37.0); MEAN CORPUSCULAR VOLUME 88 fL (80-100); MONOCYTES # (AUTO) 0.3 K/uL (0.1-1.0); MONOCYTES % (AUTO) 6.6 % (2.0-9.0); NEUTROPHILS # (AUTO) 1.8 K/uL (1.8-7.7); NEUTROPHILS % (AUTO) 37.3 % (40.0-70.0); PLATELET COUNT (AUTO) 118 K/uL (150-450); RED BLOOD CELL COUNT(AUTO) 2.73 MIL/uL (4.00-5.20); RED CELL DISTRIBUTION WIDTH 17.8 % (11.5-14.5)
[2021-09-09 16:00] VITALS: BP 117/62
[2021-09-09 16:13] LABS: ALANINE AMINOTRANSFERASE 24 U/L (12-78); ALBUMIN 1.2 g/dL (3.4-5.0); ALKALINE PHOSPHATASE 306 U/L (46-116); ANION GAP 11 mmol/L (8-16); ASPARTATE AMINOTRANSFERASE 29 U/L (15-37); BILIRUBIN,TOTAL 0.2 mg/dL (0.1-1.0); CALCIUM, TOTAL 6.9 mg/dL (8.8-10.5); CARBON DIOXIDE 23 mmol/L (22-29); CHLORIDE 107 mmol/L (98-107); CREATININE 0.58 mg/dL (0.60-1.30); GLOMERULAR FILTR. RATE CALC > 60 mL/min (>60); GLUCOSE,RANDOM 145 mg/dL (70-110); SODIUM SERUM 141 mmol/L (136-145); TOTAL PROTEIN, SERUM 5.5 g/dL (6.4-8.2); UREA NITROGEN, BLOOD 2 mg/dL (7-18)
[2021-09-09 16:15] LABS: POTASSIUM 2.5 mmol/L (3.5-5.1)
[2021-09-09] MEDS ORDERED: POTASSIUM CHLORIDE 20 MEQ ER TABLET PO PRN (17:00)
[2021-09-09] MEDS ORDERED: POTASSIUM CHLORIDE 10% 40 MEQ/30 ML LIQUID UDCUP PO PRN ×2 (17:00)
[2021-09-09] MEDS ORDERED: POTASSIUM CHL 10 MEQ/WATER 50 ML IV PRN ×3 (17:00)
[2021-09-09] MEDS: POTASSIUM CHLORIDE 20 MEQ ER TABLET PO PRN (17:03)
[2021-09-09] MEDS: POTASSIUM CHL 10 MEQ/WATER 50 ML IV PRN ×4 (17:04→23:42)
[2021-09-09 20:00] VITALS: BP 115/78
[2021-09-10] VITALS: BP 113/67
[2021-09-10 04:00] VITALS: BP 120/69
[2021-09-10 07:12] LABS: BASOPHILS % (AUTO) 0.4 % (0.0-2.0); EOSINOPHILS % (AUTO) 0.2 % (1.0-6.0); HEMATOCRIT 24.2 % (36-46); HEMOGLOBIN 8.3 g/dL (12.0-16.0); LYMPHOCYTES # (AUTO) 2.9 K/uL (1.0-4.8); LYMPHOCYTES % (AUTO) 50.3 % (22.0-44.0); MEAN CORPUSCULAR HEMOGLOBIN 30.1 pg (26.0-34.0); MEAN CORPUSCULAR HGB CONC 34.2 G/dL (31.0-37.0); MEAN CORPUSCULAR VOLUME 88 fL (80-100); MONOCYTES # (AUTO) 0.4 K/uL (0.1-1.0); MONOCYTES % (AUTO) 6.8 % (2.0-9.0); NEUTROPHILS # (AUTO) 2.4 K/uL (1.8-7.7); NEUTROPHILS % (AUTO) 42.3 % (40.0-70.0); PLATELET COUNT (AUTO) 152 K/uL (150-450); RED BLOOD CELL COUNT(AUTO) 2.75 MIL/uL (4.00-5.20); RED CELL DISTRIBUTION WIDTH 17.7 % (11.5-14.5)
[2021-09-10 07:31] LABS: ALANINE AMINOTRANSFERASE 22 U/L (12-78); ALBUMIN 1.3 g/dL (3.4-5.0); ALKALINE PHOSPHATASE 282 U/L (46-116); ANION GAP 9 mmol/L (8-16); ASPARTATE AMINOTRANSFERASE 28 U/L (15-37); BILIRUBIN,TOTAL 0.4 mg/dL (0.1-1.0); CALCIUM, TOTAL 6.9 mg/dL (8.8-10.5); CARBON DIOXIDE 24 mmol/L (22-29); CHLORIDE 108 mmol/L (98-107); CREATININE 0.48 mg/dL (0.60-1.30); GLUCOSE,RANDOM 88 mg/dL (70-110); POTASSIUM 3.4 mmol/L (3.5-5.1); SODIUM SERUM 141 mmol/L (136-145); TOTAL PROTEIN, SERUM 5.7 g/dL (6.4-8.2); UREA NITROGEN, BLOOD 2 mg/dL (7-18)
[2021-09-10 07:37] LABS: GLOMERULAR FILTR. RATE CALC > 60 mL/min (>60)
[2021-09-10] MEDS: ENOXAPARIN SODIUM 60 MG/0.6 ML PF SYRINGE SQ SCH ×2 (09:17→21:18)
[2021-09-10] MEDS: ASPIRIN 81 MG CHEWABLE TABLET PO SCH (09:18)
[2021-09-10] MEDS: CarBAMazepine 200 MG TABLET PO SCH (09:18)
[2021-09-10] MEDS: MetroNIDAZOLE 500 MG TABLET PO SCH ×3 (09:18→21:19)
[2021-09-10] MEDS: PANTOPRAZOLE SODIUM 40 MG DR TABLET PO SCH ×2 (09:18→21:19)
[2021-09-10] MEDS: ATORVASTATIN CALCIUM 40 MG TABLET PO SCH (09:19)
[2021-09-10] MEDS: TOPIRAMATE 100 MG TABLET PO SCH ×2 (09:19→21:19)
[2021-09-10] MEDS: ACETAMINOPHEN 325 MG TABLET PO PRN ×2 (12:24→21:18)
[2021-09-10] MEDS: CefTRIAXone 1 GM/DEXTROSE 50 ML IV SCH (12:24)
[2021-09-10 14:03] VITALS: BP 98/58
[2021-09-10 20:56] VITALS: BP 100/67
[2021-09-11 00:20] VITALS: BP 98/55
[2021-09-11 04:22] VITALS: BP 117/69
[2021-09-11 07:07] LABS: BASOPHILS % (AUTO) 0.7 % (0.0-2.0); EOSINOPHILS % (AUTO) 0.4 % (1.0-6.0); HEMATOCRIT 24.1 % (36-46); HEMOGLOBIN 8.1 g/dL (12.0-16.0); LYMPHOCYTES # (AUTO) 2.6 K/uL (1.0-4.8); MEAN CORPUSCULAR HEMOGLOBIN 30.1 pg (26.0-34.0); MEAN CORPUSCULAR HGB CONC 33.5 G/dL (31.0-37.0); MEAN CORPUSCULAR VOLUME 90 fL (80-100); MONOCYTES # (AUTO) 0.3 K/uL (0.1-1.0); MONOCYTES % (AUTO) 7.3 % (2.0-9.0); NEUTROPHILS # (AUTO) 1.5 K/uL (1.8-7.7); NEUTROPHILS % (AUTO) 32.6 % (40.0-70.0); PLATELET COUNT (AUTO) 180 K/uL (150-450); RED BLOOD CELL COUNT(AUTO) 2.69 MIL/uL (4.00-5.20); RED CELL DISTRIBUTION WIDTH 18.5 % (11.5-14.5)
[2021-09-11 07:19] VITALS: BP 109/65
[2021-09-11 07:28] LABS: ALANINE AMINOTRANSFERASE 19 U/L (12-78); ALBUMIN 1.2 g/dL (3.4-5.0); ALKALINE PHOSPHATASE 234 U/L (46-116); ANION GAP 8 mmol/L (8-16); ASPARTATE AMINOTRANSFERASE 20 U/L (15-37); BILIRUBIN,TOTAL 0.3 mg/dL (0.1-1.0); CALCIUM, TOTAL 7.2 mg/dL (8.8-10.5); CARBON DIOXIDE 24 mmol/L (22-29); CHLORIDE 111 mmol/L (98-107); CREATININE 0.53 mg/dL (0.60-1.30); GLUCOSE,RANDOM 90 mg/dL (70-110); SODIUM SERUM 143 mmol/L (136-145); TOTAL PROTEIN, SERUM 5.4 g/dL (6.4-8.2); UREA NITROGEN, BLOOD 3 mg/dL (7-18)
[2021-09-11 07:37] LABS: GLOMERULAR FILTR. RATE CALC > 60 mL/min (>60)
[2021-09-11] MEDS: TOPIRAMATE 100 MG TABLET PO SCH ×2 (08:33→20:47)
[2021-09-11] MEDS: ATORVASTATIN CALCIUM 40 MG TABLET PO SCH (08:34)
[2021-09-11] MEDS: CarBAMazepine 200 MG TABLET PO SCH (08:34)
[2021-09-11] MEDS: PANTOPRAZOLE SODIUM 40 MG DR TABLET PO SCH ×2 (08:34→20:48)
[2021-09-11] MEDS: ENOXAPARIN SODIUM 60 MG/0.6 ML PF SYRINGE SQ SCH ×2 (08:34→20:48)
[2021-09-11] MEDS: ASPIRIN 81 MG CHEWABLE TABLET PO SCH (08:35)
[2021-09-11] MEDS: MetroNIDAZOLE 500 MG TABLET PO SCH ×3 (08:35→20:47)
[2021-09-11] MEDS: POTASSIUM CHL 10 MEQ/WATER 50 ML IV PRN ×4 (08:36→16:21)
[2021-09-11] MEDS: ACETAMINOPHEN 325 MG TABLET PO PRN ×3 (08:50→20:56)
[2021-09-11 11:11] VITALS: BP 98/53
[2021-09-11] MEDS: CefTRIAXone 1 GM/DEXTROSE 50 ML IV SCH (12:05)
[2021-09-11] MEDS ORDERED: MAGNESIUM HYDROXIDE SUSPENSION 30 ML UDCUP PO ONE (14:15)
[2021-09-11 15:02] VITALS: BP 115/66
[2021-09-11] MEDS: POTASSIUM CHLORIDE 20 MEQ ER TABLET PO PRN (16:40)
[2021-09-11 21:50] VITALS: BP 122/69
[2021-09-12 06:04] LABS: BASOPHILS % (AUTO) 0.3 % (0.0-2.0); EOSINOPHILS % (AUTO) 0.3 % (1.0-6.0); HEMATOCRIT 26.9 % (36-46); HEMOGLOBIN 8.9 g/dL (12.0-16.0); LYMPHOCYTES # (AUTO) 2.8 K/uL (1.0-4.8); LYMPHOCYTES % (AUTO) 51.6 % (22.0-44.0); MEAN CORPUSCULAR HEMOGLOBIN 29.9 pg (26.0-34.0); MEAN CORPUSCULAR HGB CONC 33.1 G/dL (31.0-37.0); MEAN CORPUSCULAR VOLUME 90 fL (80-100); MONOCYTES # (AUTO) 0.3 K/uL (0.1-1.0); MONOCYTES % (AUTO) 6.3 % (2.0-9.0); NEUTROPHILS # (AUTO) 2.2 K/uL (1.8-7.7); NEUTROPHILS % (AUTO) 41.5 % (40.0-70.0); PLATELET COUNT (AUTO) 309 K/uL (150-450); RED BLOOD CELL COUNT(AUTO) 2.97 MIL/uL (4.00-5.20); RED CELL DISTRIBUTION WIDTH 18.6 % (11.5-14.5)
[2021-09-12 06:21] LABS: ALANINE AMINOTRANSFERASE 16 U/L (12-78); ALBUMIN 1.3 g/dL (3.4-5.0); ALKALINE PHOSPHATASE 247 U/L (46-116); ANION GAP 8 mmol/L (8-16); ASPARTATE AMINOTRANSFERASE 19 U/L (15-37); BILIRUBIN,TOTAL 0.3 mg/dL (0.1-1.0); CALCIUM, TOTAL 7.2 mg/dL (8.8-10.5); CARBON DIOXIDE 21 mmol/L (22-29); CHLORIDE 105 mmol/L (98-107); CREATININE 0.44 mg/dL (0.60-1.30); GLUCOSE,RANDOM 90 mg/dL (70-110); SODIUM SERUM 134 mmol/L (136-145); TOTAL PROTEIN, SERUM 5.9 g/dL (6.4-8.2); UREA NITROGEN, BLOOD 2 mg/dL (7-18)
[2021-09-12 06:24] LABS: GLOMERULAR FILTR. RATE CALC > 60 mL/min (>60)
[2021-09-12 08:22] VITALS: BP 111/69
[2021-09-12] MEDS: MetroNIDAZOLE 500 MG TABLET PO SCH ×3 (09:00→20:46)
[2021-09-12] MEDS: PANTOPRAZOLE SODIUM 40 MG DR TABLET PO SCH ×2 (09:00→20:46)
[2021-09-12] MEDS: ASPIRIN 81 MG CHEWABLE TABLET PO SCH (09:00)
[2021-09-12] MEDS: ATORVASTATIN CALCIUM 40 MG TABLET PO SCH (09:00)
[2021-09-12] MEDS: MULTIVITAMINS WITH MINERALS, THERAPEUTIC TABLET PO SCH (09:00)
[2021-09-12] MEDS: ENOXAPARIN SODIUM 60 MG/0.6 ML PF SYRINGE SQ SCH ×2 (09:00→20:46)
[2021-09-12] MEDS: CarBAMazepine 200 MG TABLET PO SCH (09:00)
[2021-09-12] MEDS: TOPIRAMATE 100 MG TABLET PO SCH ×2 (09:01→20:46)
[2021-09-12 11:48] VITALS: BP 106/64
[2021-09-12] MEDS: CefTRIAXone 1 GM/DEXTROSE 50 ML IV SCH (12:17)
[2021-09-12 16:26] VITALS: BP 98/64
[2021-09-12 20:36] VITALS: BP 150/83
[2021-09-12] MEDS: ACETAMINOPHEN 325 MG TABLET PO PRN (21:04)
[2021-09-12 23:50] VITALS: BP 108/69
[2021-09-13] MEDS ORDERED: HYDROCODONE/ACETAMINOPHEN 5-325 MG TABLET PO PRN ×2 (00:30)
[2021-09-13 04:11] VITALS: BP 112/76
[2021-09-13] MEDS: ACETAMINOPHEN 325 MG TABLET PO PRN ×3 (04:45→20:06)
[2021-09-13 05:37] LABS: BASOPHILS % (AUTO) 0.8 % (0.0-2.0); EOSINOPHILS % (AUTO) 0.2 % (1.0-6.0); HEMATOCRIT 25.9 % (36-46); HEMOGLOBIN 8.6 g/dL (12.0-16.0); LYMPHOCYTES # (AUTO) 3.3 K/uL (1.0-4.8); LYMPHOCYTES % (AUTO) 68.3 % (22.0-44.0); MEAN CORPUSCULAR HEMOGLOBIN 30.2 pg (26.0-34.0); MEAN CORPUSCULAR HGB CONC 33.1 G/dL (31.0-37.0); MEAN CORPUSCULAR VOLUME 91 fL (80-100); MONOCYTES # (AUTO) 0.4 K/uL (0.1-1.0); MONOCYTES % (AUTO) 8.7 % (2.0-9.0); NEUTROPHILS # (AUTO) 1.1 K/uL (1.8-7.7); PLATELET COUNT (AUTO) 359 K/uL (150-450); RED BLOOD CELL COUNT(AUTO) 2.83 MIL/uL (4.00-5.20)
[2021-09-13 05:58] LABS: ALANINE AMINOTRANSFERASE 14 U/L (12-78); ALBUMIN 1.3 g/dL (3.4-5.0); ALKALINE PHOSPHATASE 234 U/L (46-116); ANION GAP 6 mmol/L (8-16); ASPARTATE AMINOTRANSFERASE 17 U/L (15-37); BILIRUBIN,TOTAL 0.3 mg/dL (0.1-1.0); CALCIUM, TOTAL 7.6 mg/dL (8.8-10.5); CARBON DIOXIDE 22 mmol/L (22-29); CHLORIDE 108 mmol/L (98-107); GLUCOSE,RANDOM 94 mg/dL (70-110); POTASSIUM 4.6 mmol/L (3.5-5.1); SODIUM SERUM 136 mmol/L (136-145); TOTAL PROTEIN, SERUM 5.8 g/dL (6.4-8.2); UREA NITROGEN, BLOOD 4 mg/dL (7-18)
[2021-09-13 06:08] LABS: GLOMERULAR FILTR. RATE CALC > 60 mL/min (>60)
[2021-09-13 06:35] LABS: COVID AG,FIA SOURCE NASOPHARYNGEAL
[2021-09-13 07:51] VITALS: BP 103/74
[2021-09-13] MEDS: CarBAMazepine 200 MG TABLET PO SCH (09:56)
[2021-09-13] MEDS: PANTOPRAZOLE SODIUM 40 MG DR TABLET PO SCH ×2 (09:56→20:06)
[2021-09-13] MEDS: MetroNIDAZOLE 500 MG TABLET PO SCH ×3 (09:56→20:06)
[2021-09-13] MEDS: TOPIRAMATE 100 MG TABLET PO SCH ×2 (09:56→20:05)
[2021-09-13] MEDS: ATORVASTATIN CALCIUM 40 MG TABLET PO SCH (09:56)
[2021-09-13] MEDS: MULTIVITAMINS WITH MINERALS, THERAPEUTIC TABLET PO SCH (09:56)
[2021-09-13] MEDS: ASPIRIN 81 MG CHEWABLE TABLET PO SCH (09:56)
[2021-09-13] MEDS: ENOXAPARIN SODIUM 60 MG/0.6 ML PF SYRINGE SQ SCH ×2 (09:57→20:06)
[2021-09-13 11:57] VITALS: BP 108/68
[2021-09-13] MEDS ORDERED: SODIUM CHLORIDE 0.9% 50 ML ONE (13:27)
[2021-09-13] MEDS: CefTRIAXone 1 GM/DEXTROSE 50 ML IV SCH (13:27)
[2021-09-13 15:25] VITALS: BP 117/71
[2021-09-13] MEDS ORDERED: CEFX2I IV (18:39)
[2021-09-13] MEDS ORDERED: ENOX60DI8 SQ (18:39)
[2021-09-13] MEDS ORDERED: MULT-1239 PO (18:40)
[2021-09-13] MEDS ORDERED: TOPI100T37 PO (18:41)
[2021-09-13] MEDS ORDERED: HYDR-4723 PO (18:42)
[2021-09-13] MEDS ORDERED: LEVA1.2525 NEB (18:43)
[2021-09-13 19:19] VITALS: BP 103/67
[2021-09-13 23:24] VITALS: BP 99/66
[2021-09-14 03:33] VITALS: BP 106/69
[2021-09-14 06:58] LABS: BASOPHILS % (AUTO) 1.1 % (0.0-2.0); EOSINOPHILS % (AUTO) 0.4 % (1.0-6.0); HEMATOCRIT 25.6 % (36-46); HEMOGLOBIN 8.5 g/dL (12.0-16.0); LYMPHOCYTES # (AUTO) 2.7 K/uL (1.0-4.8); LYMPHOCYTES % (AUTO) 55.8 % (22.0-44.0); MEAN CORPUSCULAR HEMOGLOBIN 30.2 pg (26.0-34.0); MEAN CORPUSCULAR HGB CONC 33.2 G/dL (31.0-37.0); MEAN CORPUSCULAR VOLUME 91 fL (80-100); MONOCYTES # (AUTO) 0.3 K/uL (0.1-1.0); MONOCYTES % (AUTO) 6.3 % (2.0-9.0); NEUTROPHILS # (AUTO) 1.8 K/uL (1.8-7.7); NEUTROPHILS % (AUTO) 36.4 % (40.0-70.0); PLATELET COUNT (AUTO) 376 K/uL (150-450); RED CELL DISTRIBUTION WIDTH 19.9 % (11.5-14.5)
[2021-09-14 07:12] LABS: ALANINE AMINOTRANSFERASE 14 U/L (12-78); ALBUMIN 1.4 g/dL (3.4-5.0); ALKALINE PHOSPHATASE 244 U/L (46-116); ANION GAP 9 mmol/L (8-16); ASPARTATE AMINOTRANSFERASE 21 U/L (15-37); BILIRUBIN,TOTAL 0.3 mg/dL (0.1-1.0); CALCIUM, TOTAL 7.9 mg/dL (8.8-10.5); CARBON DIOXIDE 21 mmol/L (22-29); CHLORIDE 107 mmol/L (98-107); GLOMERULAR FILTR. RATE CALC > 60 mL/min (>60); GLUCOSE,RANDOM 86 mg/dL (70-110); POTASSIUM 3.7 mmol/L (3.5-5.1); SODIUM SERUM 137 mmol/L (136-145); TOTAL PROTEIN, SERUM 5.7 g/dL (6.4-8.2); UREA NITROGEN, BLOOD 6 mg/dL (7-18)
[2021-09-14 07:54] VITALS: BP 100/66
[2021-09-14] MEDS: ENOXAPARIN SODIUM 60 MG/0.6 ML PF SYRINGE SQ SCH (09:11)
[2021-09-14] MEDS: ACETAMINOPHEN 325 MG TABLET PO PRN (09:12)
[2021-09-14] MEDS: ASPIRIN 81 MG CHEWABLE TABLET PO SCH (09:12)
[2021-09-14] MEDS: MetroNIDAZOLE 500 MG TABLET PO SCH (09:12)
[2021-09-14] MEDS: TOPIRAMATE 100 MG TABLET PO SCH (09:13)
[2021-09-14] MEDS: CarBAMazepine 200 MG TABLET PO SCH (09:13)
[2021-09-14] MEDS: ATORVASTATIN CALCIUM 40 MG TABLET PO SCH (09:13)
[2021-09-14] MEDS: MULTIVITAMINS WITH MINERALS, THERAPEUTIC TABLET PO SCH (09:13)
[2021-09-14] MEDS: PANTOPRAZOLE SODIUM 40 MG DR TABLET PO SCH (09:13)
[2021-09-14] MEDS ORDERED: ACETAMINOPHEN 325 MG TABLET PO PRN (11:15)
[2021-09-14 11:36] VITALS: BP 98/61
[2021-09-14] MEDS: CefTRIAXone 1 GM/DEXTROSE 50 ML IV SCH (12:20)
[2021-09-14 14:06] LABS: COVID AG,FIA SOURCE NASAL SWAB
== END 2021-09-14 14:25 | DRG 299 ==
LOC: EDUNIT# 19:09 → EMS 19:14 → 5N 09-07 05:29
PROVIDERS: ADMIT Internal Medicine; ATTEND Internal Medicine
DX: I82.4Z1 Acute embolism and thrombosis of unspecified deep veins of right distal lower extremity (principal); J96.01 Acute respiratory failure with hypoxia; E43 Unspecified severe protein-calorie malnutrition; J90 Pleural effusion, not elsewhere classified; K57.80 Diverticulitis of intestine, part unspecified, with perforation and abscess without bleeding; K62.5 Hemorrhage of anus and rectum; J98.11 Atelectasis; I82.511 Chronic embolism and thrombosis of right femoral vein; I82.622 Acute embolism and thrombosis of deep veins of left upper extremity; I10 Essential (primary) hypertension; G40.909 Epilepsy, unspecified, not intractable, without status epilepticus; R91.1 Solitary pulmonary nodule; I25.10 Atherosclerotic heart disease of native coronary artery without angina pectoris; D64.9 Anemia, unspecified; E87.6 Hypokalemia; D69.6 Thrombocytopenia, unspecified; Z79.01 Long term (current) use of anticoagulants; Z95.0 Presence of cardiac pacemaker; Z68.20 Body mass index [BMI] 20.0-20.9, adult; Z79.899 Other long term (current) drug therapy; Z20.822 Contact with and (suspected) exposure to COVID-19
CPT/HCPCS: 71045; 71275; 80048; 80053; 81001; 81002; 82040; 83735; 83880; 84132; 84484; 85025; 85379; 85610; 87086; 93005; 93306; 93970; 97116; 97162; 97166; 97530; 97535; 99285; J0696; J1644; J1650; J1940; J3475; J3480; J7050; Q9967; 36415-L1; 36415-TC